=== PATIENT | male | born 1965 | race Caucasian/White ===

== ENCOUNTER 2021-08-23 10:06 | Outpatient (CLI) | payer OTHER, SELFPAY ==
[~2021-08-23] VITALS: Ht 175.3 cm; Wt 106.1 kg
== END 2021-08-23 23:59 | disposition home or self-care (01) ==
LOC: MLB 10:06 → EDSTATUS 08-25 10:00
PROVIDERS: ATTEND Internal Medicine Gastroenterology
DX: Z11.59 Encounter for screening for other viral diseases (principal); Z20.822 Contact with and (suspected) exposure to COVID-19